=== PATIENT | female | born 1955 | race Caucasian/White ===

== ENCOUNTER → 2016-06-05 | Outpatient (CLI) | payer OTHER ==
[~2016-06-05] MED LIST: AMMONIUM LACTA140 GM TP; APLENZIN174 MG; ASPIR 8181 MG PO; ATORVASTATIN CA40 MG PO; CLOTRIMAZOLE 1%15 G1 TOP; DIOVAN; DIOVAN320 MG PO; EFFIENT10 MG PO; HYDROCODONE-APA1 TA1 PO; LANTUS100 UNIT/M SUBQ; LEVOTHROID; LEVOTHYROXIN0.112 M1 PO; LOSARTAN POTASS50 MG PO; METFORMIN; METFORMIN HCL500 MG PO; METHYLPREDNISOLO4 MG PO; MICARDIS40 MG; MOBIC7.5 MG PO; NEURONTIN 300300 M1 PO; NOVOFINE 321 EACH MC; TOPROL XL100 MG PO; VICTOZA0.6 MG/0.1 SUBQ; WELLBUTRIN 75 M75 M1; WELLBUTRIN XL300 MG PO; ZOLOFT50 MG PO; [UNRECOGNIZED DRUG - REMARK]
== END ==
LOC: RAD 01:36
DX: Z12.31 Encounter for screening mammogram for malignant neoplasm of breast (principal)

== ENCOUNTER → 2016-07-25 | Outpatient (CLI) | payer OTHER | LOC: MRI 13:52 | DX: M19.032 Primary osteoarthritis, left wrist (principal); M25.532 Pain in left wrist ==

== ENCOUNTER → 2017-07-20 | Outpatient (CLI) | payer OTHER | LOC: RAD 01:27 | DX: Z12.31 Encounter for screening mammogram for malignant neoplasm of breast (principal) ==

== ENCOUNTER → 2019-11-18 | Outpatient (CLI) | payer OTHER | LOC: BC 13:36 | PROVIDERS: ATTEND Internal Medicine | DX: Z12.31 Encounter for screening mammogram for malignant neoplasm of breast (principal) ==

== ENCOUNTER → 2021-03-28 | Outpatient (CLI) | payer OTHER | LOC: BC 09:37 | PROVIDERS: ATTEND Internal Medicine | DX: Z12.31 Encounter for screening mammogram for malignant neoplasm of breast (principal) ==